=== PATIENT | female | born 1970 | race Two or more races ===

== ENCOUNTER 2021-01-18 11:45 | Inpatient (IN) | payer OTHER ==
[~2021-01-18] VITALS: Ht 160 cm; Wt 78.9 kg
[2021-01-18] MEDS ORDERED: ZIAC 5-6.25 MG1 EACH PO (14:48)
[2021-01-18] MEDS ORDERED: XANAX1 MG PO (14:48)
[2021-01-18] MEDS ORDERED: NORVASC5 MG PO (14:48)
== END 2021-01-26 13:07 | disposition home or self-care (01) | DRG 737 ==
LOC: OB/GYN 01-23 05:57 → O/R 01-23 05:57 → SURH 01-23 07:00 → OB/GYN 01-23 12:10
PROVIDERS: ADMIT Specialist; ATTEND Specialist
PROC: 0DTJ0ZZ Resection of Appendix, Open Approach (ICD-10-PCS; 2021-01-23)
PROC: 0DBU0ZZ Excision of Omentum, Open Approach (ICD-10-PCS; 2021-01-23)
PROC: 0UT20ZZ Resection of Bilateral Ovaries, Open Approach (ICD-10-PCS; 2021-01-23)
PROC: 0UT70ZZ Resection of Bilateral Fallopian Tubes, Open Approach (ICD-10-PCS; 2021-01-23)
PROC: 07BC0ZZ Excision of Pelvis Lymphatic, Open Approach (ICD-10-PCS; 2021-01-23)
PROC: 0UT90ZZ Resection of Uterus, Open Approach (ICD-10-PCS; principal; 2021-01-23 07:00)
DX: C56.1 Malignant neoplasm of right ovary (principal); C78.6 Secondary malignant neoplasm of retroperitoneum and peritoneum; C79.82 Secondary malignant neoplasm of genital organs; C57.01 Malignant neoplasm of right fallopian tube; N72 Inflammatory disease of cervix uteri; D12.1 Benign neoplasm of appendix; R59.9 Enlarged lymph nodes, unspecified; D25.1 Intramural leiomyoma of uterus; D25.2 Subserosal leiomyoma of uterus; N83.292 Other ovarian cyst, left side; I10 Essential (primary) hypertension